=== PATIENT | female | born 1945 | race Caucasian/White ===

== ENCOUNTER 2016-09-08 16:36 | Emergency (ER) | payer OTHER, MEDICARE ==
[2016-09-08] MEDS ORDERED: PREDNISONE 20 MG TABLET ONE (18:08)
--- NOTE | 2016-09-08 18:59 | RAD ---
HIP - LEFT 2 VW + AP PELVIS COMPARISON: None. HISTORY: Left hip pain. Unable lie flat. No injury. FINDINGS: Views: AP pelvis. Left hip AP and frog-leg. Bones: Normal mineralization. No fracture, osteonecrosis, bone destruction. Joints: Normal hips, symphysis pubis, and sacroiliac joints. Lower lumbar spine: Severe disc narrowing and large osteophytes of the lower lumbar vertebral bodies. Soft tissues: Normal. IMPRESSION: Radiographic normal left hip. Severe spondylosis in the lower lumbar spine.
== END 2016-09-08 18:20 | disposition home or self-care (01) ==
LOC: ED 16:36
DX: M54.5 Low back pain (principal); F17.210 Nicotine dependence, cigarettes, uncomplicated
CPT/HCPCS: 73502; 99283 ×2; J7512